=== PATIENT | male | born 1960 | race Caucasian/White ===

== ENCOUNTER 2017-04-29 12:26 | Day surgery (SDC) | payer OTHER ==
[~2017-04-29] VITALS: Ht 170.2 cm; Wt 56.9 kg
[2017-04-29 15:53] VITALS: BP 117/70; PULSE 54; RESP 18
--- NOTE | 2017-04-29 16:32 | OPPN ---
Date/Time of Note Date/Time of Note DATE: 04/29/17 TIME: 16:28 Proc Note GI Free Text/Dictation Procedure Date: 04/29/2017 Preoperative Diagnosis: * Colorectal cancer screening Postoperative Diagnosis: * Diverticulosis of the colon. * Moderate-sized internal hemorrhoids * Otherwise normal colonoscopy to cecum Plan: * Annual Hemoccult stool testing * High-fiber diet * Screening colonoscopy in 10 years Procedure Performed: Colonoscopy to cecum Surgeon: Mahesh Ricardo MD Lead Quality Technician: None Second Pediatric Nurse: None Anesthesia/Sedation moderate sedation with Versed 6 mg/fentanyl 100 mcg IV push Tourniquet Time: NA Estimated Blood Loss: None Transfusion Required: No Specimens: None Grafts/Implants: None Tubes/Drains: NA Complications: None Pt. Condition Post Procedure: Stable Disposition: Home After informed consent, with the patient/relatives understanding the procedure, its indications and potential risks and complications, including but not limited to: Allergic reaction, bleeding, perforation, infection, and after all pertinent questions were answered to the patient's satisfaction, the patient/ relatives signed the witnessed informed consent. Following this, premedication was administered slowly IV push under careful cardiovascular and respiratory monitoring with pulse O[employer], automatic blood pressure, and groundwater monitoring technician. Once the sedative effect was achieved, the patient was placed in the left lateral decubitus position, digital rectal examination was performed. The colonoscope was then introduced and advanced under visual control throughout all segments of the colon including: the rectum, sigmoid, descending colon, splenic flexure, transverse colon, hepatic flexure, ascending colon and finally reaching the cecum which was clearly identified by transillumination, finger indentation and the ileocecal valve. Careful examination of the mucosa of the lower gastrointestinal tract both on insertion as well as withdrawal of the instrument disclosed the following findings: PREPARATION QUALITY: [Adequate], RECTAL EXAM: The anorectal area was visualized examined and digital rectal examination performed with the following findings: No evidence of perirectal disease, no masses. COLONIC MUCOSA: The mucosa of all segments of the colon was carefully examined and showed the following findings: There is mild diverticulosis of several colon. Otherwise the examined mucosa appears within normal limits. There is no evidence of inflammatory changes, polyps or other neoplasms, vascular malformation, or any other abnormality. The instrument was then withdrawn, the patient tolerated the procedure well and was transferred out of the Endoscopy Suite awake and in good condition to continue recovery under observation. Procedure date: Apr 29, 2017 MAHESH RICARDO MD Apr 29, 2017 16:32
[2017-04-29] MEDS ORDERED: MIDAZOLAM 1 MG/ML 2 ML INJ ONE ×3 (16:35→16:36)
[2017-04-29] MEDS ORDERED: FENTAnyl 50 MCG/ML VIAL ONE (16:36)
[2017-04-29] MEDS ORDERED: CITALOPRAM (16:41)
[2017-04-29] MEDS ORDERED: FENOFIBRATE (16:41)
[2017-04-29] MEDS ORDERED: PYRIDOXINE (16:41)
[2017-04-29] MEDS ORDERED: ISONIAZID (16:41)
[2017-04-29 17:00] VITALS: BP 114/62; PULSE 65; RESP 14
== END 2017-04-29 17:13 | disposition home or self-care (01) ==
LOC: GIL 12:26
PROVIDERS: ATTEND Internal Medicine Gastroenterology
DX: Z12.11 Encounter for screening for malignant neoplasm of colon (principal); K64.4 Residual hemorrhoidal skin tags; K57.90 Diverticulosis of intestine, part unspecified, without perforation or abscess without bleeding; E78.00 Pure hypercholesterolemia, unspecified; F32.9 Major depressive disorder, single episode, unspecified
CPT/HCPCS: 45378; J2250; J3010; Z7610